=== PATIENT | male | born 1995 | race African-American/Black ===

== ENCOUNTER 2016-12-17 06:53 | Emergency (ER) | payer OTHER ==
--- NOTE | 2016-12-17 07:26 | EDDOCDS ---
Nurse's Notes [facility] Name: Alvaro Chawla Age: 21 yrs Sex: Male : 1995 Arrival Date: 12/17/2016 Time: 06:53 Bed I2 / M2 Private MD: Diagnosis: Other ejaculatory dysfunction-discolored semen without any other symptoms Presentation: 12/17 06:59 Presenting complaint: Patient states: noticed 'yellow semen' when had intercourse this kr3 AM. Adult Sepsis Screening: The patient does not have new or worsening altered mentation. Patient's respiratory rate is less than 22. Systolic blood pressure is greater than 100. Patient has a qSOFA score of 0- Negative Sepsis Screen. Suicide/Homicide risk assessment- the patient denies having any suicidal and/or homicidal ideations and does not present with any other emotional, behavioral or mental health complaints. 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 Transition of care: patient was not received from another setting of care. 06:59 Acuity: ADDI Level 4 kr3 06:59 Method Of Arrival: Walkin/Carried/Asstd kr3 Triage Assessment: 07:00 General: Appears in no apparent distress, comfortable, Behavior is cooperative. Pain: kr3 Denies pain. Pain currently is 0 out of 10 on a pain scale. Pt Declines HIV testing. GI:. : Denies burning with urination. Derm: Skin is pink, warm & dry. Historical: - Allergies: no known allergies; - Home Meds: 1. none - PMHx: none; - PSHx: none; - Social history: Smoking status: Patient states was never smoker of tobacco. No barriers to communication noted, The patient speaks fluent [place] Citizen, Speaks appropriately for age. - Family history: Not pertinent. - : The pt / caregiver states he / she is not on anticoagulants. Home medication list is obtained from the patient. - Exposure Risk Screening:: None identified. Screenin:24 Screening information is obtained from the patient. Fall risk: No risks identified. kr3 Assistance ADL's: requires no assistance with activities of daily living. Abuse/DV Screen: The patient / caregiver reports he/she is: not in a situation that causes fear, pain or injury. Nutritional screening: No deficits noted. Advance Directives: Currently, there is no health care proxy. home support is adequate. Assessment: 07:24 General: Appears in no apparent distress, comfortable, Behavior is appropriate for age, kr3 cooperative. Vital Signs: 07:00 BP 134 / 61; Pulse 74; Resp 16; Temp 97.4(O); Pulse Ox 99% ; Weight 72.57 kg (R); kr3 Height 6 ft. (182.88 cm) (R); 07:00 Body Mass Index 21.70 (72.57 kg, 182.88 cm) kr3 Vitals: 07:00 Log In Time: December 17, 2016 at 06:54. kr3 ED Course: 06:54 Patient visited by Cindy Moya, Reg. hs2 06:54 Patient moved to Waiting hs2 07:00 Triage Initiated kr3 07:03 Tony Jones PA is PHCP. btw 07:03 Tj Burk MD is Attending Physician. btw 07:03 Patient moved to I2 / M2 kr3 07:04 Patient visited by Tony Jones PA. btw 07:19 Zully Walker [facility] is Referral Physician. btw 07:24 No IV's were initiated during this patient's visit. No procedures done that require kr3 assistance. 07:25 The patient / caregiver is instructed regarding the plan of care and ED course. Patient kr3 has correct armband on for positive identification. Order Results: There are currently no results for this order. Outcome: 07:20 Discharge ordered by Provider. btw 07:24 Discharge Assessment: patient administered narcotics - no. The following High Risk kr3 Discharge criteria are identified: None. Discharged to home ambulatory. Condition: stable. Discharge instructions given to patient, Instructed on discharge instructions, follow up and referral plans. Demonstrated understanding of instructions, Pt was receptive of discharge instructions/ teaching. No special radiology studies were completed. Property sent home with patient. 07:25 Patient left the ED. kr3 Signatures: Janelle FerminRN RN kr3 Tony Jones PA PA btw Cindy Moya, Reg Reg hs2 MTDD
--- NOTE | 2016-12-17 07:26 | EDDOCDS ---
Physician Documentation [facility] Name: Alvaro Chawla Age: 21 yrs Sex: Male : 1995 Arrival Date: 12/17/2016 Time: 06:53 Bed I2 / M2 Private MD: Disposition: 12/17/16 07:20 Discharged to Home/Self Care. Impression: Other ejaculatory dysfunction - discolored semen without any other symptoms. - Condition is Stable. - Medication Reconciliation, Local Pharmacy Hours form. - Follow up: Zully Walker [facility]; When: Today; Reason: Further diagnostic work-up, Recheck today's complaints, Continuance of care. - Problem is new. - Symptoms are unchanged. Historical: - Allergies: no known allergies; - Home Meds: 1. none - PMHx: none; - PSHx: none; - Social history: Smoking status: Patient states was never smoker of tobacco. No barriers to communication noted, The patient speaks fluent Indonesian, Speaks appropriately for age. - Family history: Not pertinent. - : The pt / caregiver states he / she is not on anticoagulants. Home medication list is obtained from the patient. - Exposure Risk Screening:: None identified. Vital Signs: 12/17 07:00 BP 134 / 61; Pulse 74; Resp 16; Temp 97.4(O); Pulse Ox 99% ; Weight 72.57 kg / 159.99 kr3 lbs (R); Height 6 ft. (182.88 cm) (R); 07:00 Body Mass Index 21.70 (72.57 kg, 182.88 cm) kr3 Signatures: Janelle Fermin RN RN kr3 Tony Jones PA PA btw MTDD
--- NOTE | 2016-12-19 08:26 | EDDOCDS ---
Physician Documentation [facility] Name: Alvaro Chawla Age: 21 yrs Sex: Male : 1995 Arrival Date: 12/17/2016 Time: 06:53 Bed I2 / M2 Private MD: Disposition: 12/17/16 07:20 Discharged to Home/Self Care. Impression: Other ejaculatory dysfunction - discolored semen without any other symptoms. - Condition is Stable. - Medication Reconciliation, Local Pharmacy Hours form. - Follow up: Zully Walker [facility]; When: Today; Reason: Further diagnostic work-up, Recheck today's complaints, Continuance of care. - Problem is new. - Symptoms are unchanged. Historical: - Allergies: no known allergies; - Home Meds: 1. none - PMHx: none; - PSHx: none; - Social history: Smoking status: Patient states was never smoker of tobacco. No barriers to communication noted, The patient speaks fluent Guatemalan, Speaks appropriately for age. - Family history: Not pertinent. - : The pt / caregiver states he / she is not on anticoagulants. Home medication list is obtained from the patient. - Exposure Risk Screening:: None identified. Vital Signs: 12/17 07:00 BP 134 / 61; Pulse 74; Resp 16; Temp 97.4(O); Pulse Ox 99% ; Weight 72.57 kg / 159.99 kr3 lbs (R); Height 6 ft. (182.88 cm) (R); 07:00 Body Mass Index 21.70 (72.57 kg, 182.88 cm) kr3 MDM: : [facility] Payment Agreement was scanned into [employer] and attached to record. 5 07:26 Financial registration complete. jp5 14:02 T-Sheet-- Draft Copy was scanned into [employer] and attached to record. gb Signatures: Jazmin Tirado Reg Reg gb Robie, Kathleen,IGNACIO RN kr3 Tony Jones PA PA btw Price, Jennalee jp5 The chart was reviewed and I authenticate all verbal orders and agree with the evaluation and treatment provided.Attachments: [facility] Payment Agreement jp5 14:02 T-Sheet-- Draft Copy gb Chart Complete MTDD
--- NOTE | 2016-12-19 08:26 | EDDOCDS ---
Physician Documentation [facility] Name: Alvaro Chawla Age: 21 yrs Sex: Male : 1995 Arrival Date: 12/17/2016 Time: 06:53 Bed I2 / M2 Private MD: Disposition: 12/17/16 07:20 Discharged to Home/Self Care. Impression: Other ejaculatory dysfunction - discolored semen without any other symptoms. - Condition is Stable. - Medication Reconciliation, Local Pharmacy Hours form. - Follow up: Zully Walker [facility]; When: Today; Reason: Further diagnostic work-up, Recheck today's complaints, Continuance of care. - Problem is new. - Symptoms are unchanged. Historical: - Allergies: no known allergies; - Home Meds: 1. none - PMHx: none; - PSHx: none; - Social history: Smoking status: Patient states was never smoker of tobacco. No barriers to communication noted, The patient speaks fluent Tongan, Speaks appropriately for age. - Family history: Not pertinent. - : The pt / caregiver states he / she is not on anticoagulants. Home medication list is obtained from the patient. - Exposure Risk Screening:: None identified. Vital Signs: 12/17 07:00 BP 134 / 61; Pulse 74; Resp 16; Temp 97.4(O); Pulse Ox 99% ; Weight 72.57 kg / 159.99 kr3 lbs (R); Height 6 ft. (182.88 cm) (R); 07:00 Body Mass Index 21.70 (72.57 kg, 182.88 cm) kr3 MDM: : [facility] Payment Agreement was scanned into [employer] and attached to record. 5 07:26 Financial registration complete. jp5 14:02 T-Sheet-- Draft Copy was scanned into [employer] and attached to record. gb Signatures: Jazmin Tirado Reg Reg gb Robie, Kathleen,IGNACIO RN kr3 Tony Jones PA PA btw Price, Jennalee jp5 The chart was reviewed and I authenticate all verbal orders and agree with the evaluation and treatment provided.Attachments: [facility] Payment Agreement jp5 14:02 T-Sheet-- Draft Copy gb Chart Complete MTDD
--- NOTE | 2016-12-19 08:26 | EDDOCDS ---
Nurse's Notes [facility] Name: Alvaro Chawla Age: 21 yrs Sex: Male : 1995 Arrival Date: 12/17/2016 Time: 06:53 Bed I2 / M2 Private MD: Diagnosis: Other ejaculatory dysfunction-discolored semen without any other symptoms Presentation: 12/17 06:59 Presenting complaint: Patient states: noticed 'yellow semen' when had intercourse this kr3 AM. Adult Sepsis Screening: The patient does not have new or worsening altered mentation. Patient's respiratory rate is less than 22. Systolic blood pressure is greater than 100. Patient has a qSOFA score of 0- Negative Sepsis Screen. Suicide/Homicide risk assessment- the patient denies having any suicidal and/or homicidal ideations and does not present with any other emotional, behavioral or mental health complaints. 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 Transition of care: patient was not received from another setting of care. 06:59 Acuity: ADDI Level 4 kr3 06:59 Method Of Arrival: Walkin/Carried/Asstd kr3 Triage Assessment: 07:00 General: Appears in no apparent distress, comfortable, Behavior is cooperative. Pain: kr3 Denies pain. Pain currently is 0 out of 10 on a pain scale. Pt Declines HIV testing. GI:. : Denies burning with urination. Derm: Skin is pink, warm & dry. Historical: - Allergies: no known allergies; - Home Meds: 1. none - PMHx: none; - PSHx: none; - Social history: Smoking status: Patient states was never smoker of tobacco. No barriers to communication noted, The patient speaks fluent Qatari, Speaks appropriately for age. - Family history: Not pertinent. - : The pt / caregiver states he / she is not on anticoagulants. Home medication list is obtained from the patient. - Exposure Risk Screening:: None identified. Screenin:24 Screening information is obtained from the patient. Fall risk: No risks identified. kr3 Assistance ADL's: requires no assistance with activities of daily living. Abuse/DV Screen: The patient / caregiver reports he/she is: not in a situation that causes fear, pain or injury. Nutritional screening: No deficits noted. Advance Directives: Currently, there is no health care proxy. home support is adequate. Assessment: 07:24 General: Appears in no apparent distress, comfortable, Behavior is appropriate for age, kr3 cooperative. Vital Signs: 07:00 BP 134 / 61; Pulse 74; Resp 16; Temp 97.4(O); Pulse Ox 99% ; Weight 72.57 kg (R); kr3 Height 6 ft. (182.88 cm) (R); 07:00 Body Mass Index 21.70 (72.57 kg, 182.88 cm) kr3 Vitals: 07:00 Log In Time: December 17, 2016 at 06:54. kr3 ED Course: 06:54 Patient visited by Cindy Moya, Reg. hs2 06:54 Patient moved to Waiting hs2 07:00 Triage Initiated kr3 07:03 Tony Jones PA is PHCP. btw 07:03 Tj Burk MD is Attending Physician. btw 07:03 Patient moved to I2 / M2 kr3 07:04 Patient visited by Tony Jones PA. btw 07:19 [facility] btw 07:24 No IV's were initiated during this patient's visit. No procedures done that require kr3 assistance. 07:25 The patient / caregiver is instructed regarding the plan of care and ED course. Patient cyndi has correct armband on for positive identification. 07:26 [facility] Payment Agreement was scanned into [employer] and attached to record. jp5 14:02 T-Sheet-- Draft Copy was scanned into [employer] and attached to record. gb Order Results: There are currently no results for this order. Outcome: 07:20 Discharge ordered by Provider. btw 07:24 Discharge Assessment: patient administered narcotics - no. The following High Risk kr3 Discharge criteria are identified: None. Discharged to home ambulatory. Condition: stable. Discharge instructions given to patient, Instructed on discharge instructions, follow up and referral plans. Demonstrated understanding of instructions, Pt was receptive of discharge instructions/ teaching. No special radiology studies were completed. Property sent home with patient. 07:25 Patient left the ED. kr3 Signatures: Jazmin Tirado, Reg Reg gb Janelle FerminRN RN kr3 Tony Jones PA PA btw Alisa Simons jp5 Moya, Cindy, Reg Reg hs2 Chart Complete MTDD
== END 2016-12-17 07:25 | disposition home or self-care (01) ==
LOC: M ED 06:53
DX: N53.19 Other ejaculatory dysfunction (principal)

== ENCOUNTER → 2017-01-12 | Outpatient (CLI) | payer OTHER ==
[~2017-01-12] MED LIST: no medications
[2017-01-12 13:24] LABS: MEAN CORPUSCULAR HEMOGLOBIN 31.6 pg (27.0-33.0); MEAN CORPUSCULAR HGB CONC 33.7 g/dl (32.0-36.5); MEAN CORPUSCULAR VOLUME 93.8 fl (80.0-96.0); RED CELL DISTRIBUTION WIDTH 11.8 % (11.5-14.5); WHITE BLOOD COUNT 9.1 K/mm3 (4.0-10.0)
[2017-01-12 13:25] LABS: INR 0.99
[2017-01-12 13:43] LABS: ANION GAP 6 MEQ/L (8-16); BLOOD UREA NITROGEN 11 MG/DL (7-18); CALCIUM LEVEL 9.3 MG/DL (8.5-10.1); CARBON DIOXIDE LEVEL 28 MEQ/L (21-32); CHLORIDE LEVEL 106 MEQ/L (98-107); CREATININE FOR GFR 1.12 MG/DL (0.70-1.30); GLOMERULAR FILTRATION RATE > 60.0 (>60); GLUCOSE, FASTING 92 MG/DL (70-105); POTASSIUM SERUM 4.6 MEQ/L (3.5-5.1); SODIUM LEVEL 140 MEQ/L (136-145)
== END ==
LOC: M SMT 09:22
PROVIDERS: ATTEND Nurse Practitioner Women's Health
DX: Z01.818 Encounter for other preprocedural examination (principal); N47.8 Other disorders of prepuce
CPT/HCPCS: 36415; 80048; 85027; 85610; 85730; 87491; 87591; G0463

== ENCOUNTER → 2017-01-27 | Outpatient (REF) | payer OTHER ==
[2017-01-27 09:43] LABS: % NORMAL FORMS 7 % (>=4); IMMOTILITY 52 %; NON PROGRESSIVE MOTILITY (c) 14 %; PROGRESSIVE MOTILITY (a) 34 % (>=32); SPERM ABNORMAL FORMS HEAVY AMOUNT WBC'S; SPERM# 90.8 M/Ejac (33-46); TOTAL FUNCTIONAL 5.6 M/Ejac.; TOTAL MOTILITY 48 % (>=40); TOTAL PROGRESSIVE SPERM 31.2 M/Ejac.
== END ==
LOC: M LAB REF 09:23
PROVIDERS: ATTEND Family Medicine
DX: N46.9 Male infertility, unspecified (principal)

== ENCOUNTER → 2017-02-17 | Day surgery (SDC) | payer OTHER ==
[~2017-02-17] VITALS: Ht 182.9 cm; Wt 72.6 kg
[~2017-02-17] MED LIST changes: +BACITRACIN OINT 30GM As Ordered ONE; +BACT800T5 PO; +BUPIVACAINE HCL 0.25% 30 ML VIAL As Ordered ONE; +KETOROLAC 60 MG/2 ML VIAL (J1885) As Ordered ONE; +LIDOCAINE 1% SDV INJ 30 ML VIAL As Ordered ONE; +LIDOCAINE 2% INJ 100 MG/5 ML SDV (FOR ANES.) As Ordered ONE; +LR 1,000 ML IV SCH; +MEPERIDINE INJ 25 MG/ML VIAL (J2175) IV PRN; +METOCLOPRAMIDE INJ 10MG/2ML VIAL (J2765) IV PRN; +MIDAZOLAM INJ 2 MG/2 ML VIAL (J2250) As Ordered ONE; +ONDANSETRON 4MG/2ML VIAL (J2405) As Ordered ONE; +ONDANSETRON 4MG/2ML VIAL (J2405) IV PRN; +PERCOCET 5MG/325MG TAB As Ordered ONE; +PERCOCET PO; +PROPOFOL 200 MG/20 ML VIAL As Ordered ONE; +fentaNYL 100 MCG/2 ML INJECTION (J3010) As Ordered ONE; +fentaNYL 100 MCG/2 ML INJECTION (J3010) IV PRN
[2017-02-17] MEDS: PERCOCET 5MG/325MG TAB PO PRN ×2 (13:58→15:00)
--- NOTE | 2017-02-17 14:03 | RO ---
DATE OF PROCEDURE: 02/17/2017 PREOPERATIVE DIAGNOSIS: Recurrent balanitis. POSTOPERATIVE DIAGNOSIS: Recurrent balanitis. SURGERY PERFORMED: Circumcision. SURGEON: Dr. Fabiano Rosario HRIS MANAGER: Javid Carrera, PGY3 ANESTHESIA: General. COMPLICATIONS: None. ESTIMATED BLOOD LOSS: N/A. HISTORY OF PRESENT ILLNESS: 21-year-old male patient that actively has a redundant foreskin and recurrent balanitis. For this reason, he has consented for a circumcision. PROCEDURE DESCRIPTION: In a patient in supine position after prepping and draping the area of concern, which included the entire genitalia, we started by doing local anesthesia with Marcaine 0.25% and lidocaine 2%, a total of 10 mL, around the base of the penis. We then proceeded to actively put a #0 silk stitch in the glans to serve as retraction. We retracted and stretched out the penis. We then proceeded to do an incision circumferentially, incision with a cold knife 15 blade, 1 cm away from the sulcus glands. Then 4 cm below this one closer to the base of the penis we actively did another circumferential incision. We then cut and resected the skin between both incisions. We then proceeded to do an electrofulguration with the Bovie cautery of all the bleeding vessels. Once we secured hemostasis, we stitched back together the borders of the foreskin with chromic #3-0 in separate stitches. We then proceeded to place bacitracin cream on the wound and wrapped the penis with a Kerlix roll and a Coban. We took the stitch on the glans and held pressure for about 1 to 2 minutes. We then proceeded to actively send the patient to recovery. PLAN: The patient will go home with Bactrim Double Strength 1 tablet by mouth twice a day for 10 days and Percocet 5/325 mg 1 tablet by mouth every 6 hours as needed for pain. There were no complications during surgery. The foreskin was sent for permanent pathology analysis.
[2017-02-17 16:03] VITALS: BP 138/65
== END | disposition home or self-care (01) ==
LOC: M SDC 11:11
PROVIDERS: ATTEND Urology
DX: N47.1 Phimosis (principal); N46.9 Male infertility, unspecified; F17.210 Nicotine dependence, cigarettes, uncomplicated
CPT/HCPCS: 54161; 88304; J0690; J1885; J2250; J2405; J3010